=== PATIENT | female | born 1960 | race Native Hawaiian/Other Pacific Islander ===

== ENCOUNTER → 2019-01-19 | Outpatient (CLI) | payer BC ==
[~2019-01-19] MED LIST: CIPR500T PO; DICL1GEL2 TOP; KETO10TA34 PO; TRAM50TA PO; VIVELLE-DOT0.025 MG TD
== END ==
LOC: RAD 16:43
DX: R10.31 Right lower quadrant pain (principal)

== ENCOUNTER 2020-08-26 08:59 | Outpatient (CLI) | payer BC | END 2020-08-26 19:28 | disposition home or self-care (01) | LOC: RAD 08:59 | PROVIDERS: ATTEND Internal Medicine | DX: J40 Bronchitis, not specified as acute or chronic (principal) ==

== ENCOUNTER 2020-08-29 16:55 | Outpatient (CLI) | payer BC, OTHER | END 2020-08-29 18:59 | disposition home or self-care (01) | LOC: LABW 16:55 | PROVIDERS: ATTEND Internal Medicine | DX: U07.1 COVID-19 (principal); J18.9 Pneumonia, unspecified organism; Z11.59 Encounter for screening for other viral diseases | CPT/HCPCS: 87635; G2023; U0003 ==

== ENCOUNTER 2021-06-02 15:05 | Outpatient (CLI) | payer BC | END 2021-06-02 22:08 | disposition home or self-care (01) | LOC: RAD 15:05 | PROVIDERS: ATTEND Internal Medicine | DX: Z12.31 Encounter for screening mammogram for malignant neoplasm of breast (principal); Z13.820 Encounter for screening for osteoporosis ==